=== PATIENT | male | born 1955 | race Caucasian/White ===

== ENCOUNTER 2019-10-26 13:09 | Outpatient (CLI) | payer BC, SELFPAY ==
--- NOTE | 2019-10-26 13:21 | XR_ITS ---
WS: [id number] KNEE LEFT TECHNIQUE: 3 views of the left knee CLINICAL INFORMATION: ARTHRALGIA, KNEE PAIN COMPARISON: None. FINDINGS: Normal anatomic alignment. Mild joint space narrowing medial joint compartment chondromalacia. Mild h ypertrophic changes along the medial joint line. Moderate suprapatellar effusion. Soft tissue edema. Normal patella. XR/XR knee LT 3V* [id number] IMPRESSION: 1. Mild tricompartmental arthritis. 2. Moderate suprapatellar effusion.
== END 2019-10-26 13:10 | disposition home or self-care (01) ==
LOC: RADWPI 13:17
PROVIDERS: Family Provider Family Medicine; Visit Provider Family Medicine
DX: M25.50 Pain in unspecified joint (principal); M25.562 Pain in left knee; M25.462 Effusion, left knee; M17.12 Unilateral primary osteoarthritis, left knee
CPT/HCPCS: 73562

== ENCOUNTER → 2021-10-01 14:42 | Outpatient (BNVA) | payer BC, SELFPAY | PROVIDERS: Family Provider Family Medicine; PCP Family Medicine; Referring Provider Family Medicine; Visit Provider Urology | DX: N52.9 Male erectile dysfunction, unspecified (principal) | CPT/HCPCS: 81003 ==

== ENCOUNTER 2022-04-17 12:03 | Outpatient (CLI) | payer BC, SELFPAY ==
[2022-04-17 13:08] LABS: Prostate Specific AG Urology 1.26 ng/mL (0-4)
[2022-04-17 13:48] LABS: Testosterone Total 343.1 ng/dL (193-740)
== END 2022-04-17 12:04 | disposition home or self-care (01) ==
LOC: LAB 12:06
PROVIDERS: PCP Family Medicine; Visit Provider Urology
DX: Z12.5 Encounter for screening for malignant neoplasm of prostate (principal); R79.89 Other specified abnormal findings of blood chemistry
CPT/HCPCS: 36415; 81003; 84153; 84403

== ENCOUNTER 2022-10-13 15:18 | Outpatient (CLI) | payer MEDICARE, OTHER, SELFPAY ==
[2022-10-13 16:35] LABS: Testosterone Total - Urology 387 ng/mL (300-1000)
== END 2022-10-13 15:19 | disposition home or self-care (01) ==
PROVIDERS: Urology; PCP Family Medicine; Visit Provider Family Medicine
DX: R79.89 Other specified abnormal findings of blood chemistry (principal)
CPT/HCPCS: 84403

== ENCOUNTER → 2022-10-16 13:35 | Outpatient (BNVA) | payer MEDICARE, OTHER, SELFPAY | PROVIDERS: PCP Family Medicine; Visit Provider Urology | DX: R79.89 Other specified abnormal findings of blood chemistry (principal); R39.9 Unspecified symptoms and signs involving the genitourinary system | CPT/HCPCS: 51798; 81003; 99213 ==